=== PATIENT | female | born 1950 | race Two or more races ===

== ENCOUNTER 2017-08-31 20:46 | Inpatient (IN) | payer MEDICARE, OTHER ==
[~2017-08-31] VITALS: Ht 147.3 cm; Wt 68.0 kg
--- NOTE | 2017-08-31 21:10 | NUR ---
[facility] FROM [facility] C/O SEVER GENRAL SHARP ABDOMINAL PAIN 12/13 AND INTERMITTENT FEVER SINCE WEDNESDAY. PT IS AAOX4. +N/V/D X2 DAYS. PT STATES PAIN/BURNING SENSATION DURING URINATION. PT STATES DIARRHEA X 2 DAYS GREEN IN COLOR. PT STATES SHE HAS HX OF C-DIFF. PT NOTED WITHDRAWING TO TOUCH DURING ABD ASSESSMENT. PT NOTED TO HAVE MILD ABD TENDERNESS. SURGICAL WOUND COVERED WITH SURGICAL ADHESIVE. PT NOTED TO BE IN MILD ACUTE DISTRESS. RESP EVEN AND UNLABORED. PT SAFETY AND COMFORT MEASURES IN PLACE. PT PLACED ON HAND BINDER STRIPPER AND POX. AWAITING MD FOR EVAL.
--- NOTE | 2017-08-31 21:11 | NUR ---
VSS. PT GIVEN WARM BLANKET. FAMILY MEMBER BEDSIDE WITH PT.
[2017-08-31] MEDS ORDERED: IV NS 0.9% 1,000 ML BAG IV ONE (21:30)
[2017-08-31] MEDS ORDERED: MORPHINE SULFATE INJ 2 MG/ML DISP.SYRIN IV ONE (21:30)
--- NOTE | 2017-08-31 21:35 | NUR ---
SOCIALLY RESPONSIBLE INVESTMENT ADVISER AT BEDSIDE TO COLLECT BLOOD
[2017-08-31] MEDS ORDERED: MORPHINE SULFATE INJ 4 MG/ML DISP.SYRIN ONE (21:40)
--- NOTE | 2017-08-31 21:40 | NUR ---
PT UNABLE TO GIVE STOOL SPECIMEN AT THIS TIME. WILL CONTINUE TO MONITOR PT.
--- NOTE | 2017-08-31 21:43 | NUR ---
EKG AT BEDSIDE
[2017-08-31 21:52] LABS: BASOPHILS # (AUTO) 0.6 /CMM (0.0-0.2); BASOPHILS % (AUTO) 4.4 % (0.0-2.0); EOSINOPHILS % (AUTO) 0.4 % (0.0-6.0); HEMATOCRIT 39 % (33-45); HEMOGLOBIN 13.4 g/dL (11.5-14.8); LYMPHOCYTES # (AUTO) 0.9 /CMM (0.8-4.8); MEAN CORPUSCULAR HGB CONC 35 g/dl (31.0-36.0); MEAN CORPUSCULAR VOLUME 87 fL (82-100); MONOCYTES # (AUTO) 0.5 /CMM (0.1-1.30); MONOCYTES % (AUTO) 4.3 % (2.0-12.0); NEUTROPHILS # (AUTO) 10.5 /CMM (1.8-8.9); NEUTROPHILS % (AUTO) 83.9 % (43.0-81.0); PLATELET COUNT (AUTO) 403 /CMM (150-450); RDW COEFFICIENT OF VARIATION 14.5 (11.5-15.0); RED BLOOD CELL COUNT(AUTO) 4.46 MIL/uL (4.0-5.2); WHITE BLOOD COUNT (AUTO) 12.6 K/uL (4.3-11.0)
--- NOTE | 2017-08-31 22:03 | NUR ---
PT UNABLE TO GIVE STOOL SAMPLE AT THIS TIME
--- NOTE | 2017-08-31 22:10 | NUR ---
FACILITY OPERATIONS MANAGER BEDSIDE
[2017-08-31 22:12] LABS: APPEARANCE,URINE SL CLOUDY (CLEAR); BILIRUBIN,URINE NEGATIVE (NEGATIVE); BLOOD, URINE 3+ Ery/uL (NEGATIVE); COLOR,URINE YELLOW (YELLOW); KETONES,URINE 1+ (NEGATIVE); LEUKOCYTE ESTERASE ,URINE NEGATIVE (NEGATIVE); NITRITE, URINE NEGATIVE (NEGATIVE); PH,URINE 8.5 (5.0-8.0); PROTEIN,URINE 2+ mg/dl (NEGATIVE); UGLUCOSE NEGATIVE (NEGATIVE)
[2017-08-31] MEDS ORDERED: ONDANSETRON HCL/PF 4 MG/2 ML VIAL ONE (22:14)
[2017-08-31 22:22] LABS: BACTERIA,URINE Moderate /HPF (None Seen); RBC,URINE 81-100 /HPF (0-2); SQUAMOUS EPITHELIAL CELL,UR Few /HPF (None Seen)
[2017-08-31 22:27] LABS: INR 0.99 (0.87-1.13)
[2017-08-31] MEDS ORDERED: HYDROMORPHONE INJ 0.5 MG/0.5 ML SYRINGE ONE (22:28)
[2017-08-31] MEDS ORDERED: HYDROMORPHONE 1 MG/1 ML DISP.SYRIN IV ONE (22:30)
[2017-08-31] MEDS ORDERED: ONDANSETRON HCL/PF 4 MG/2 ML VIAL IV ONE (22:30)
[2017-08-31 22:34] LABS: TROPONIN I < 0.017 ng/mL (0.00-0.056)
[2017-08-31 22:39] LABS: CALCIUM, SERUM 8.8 mg/dL (8.5-10.1); CARBON DIOXIDE 22 mmol/L (21-32); CHLORIDE 99 mmol/L (98-107); CREATININE 0.9 mg/dL (0.6-1.3); GLUCOSE 139 mg/dL (74-106); POTASSIUM 3.6 mmol/L (3.5-5.1); SODIUM SERUM 133 mmol/L (136-145); UREA NITROGEN, BLOOD 8 mg/dL (7-18)
[2017-08-31 22:43] LABS: ALANINE AMINOTRANSFERASE 74 U/L (12-78); ALKALINE PHOSPHATASE 113 U/L (46-116); ASPARTATE AMINOTRANSFERASE 49 U/L (15-37); BILIRUBIN,DIRECT 0.4 mg/dL (0.0-0.2); BILIRUBIN,TOTAL 1.1 mg/dL (0.2-1.0); LIPASE 45 U/L (73-393); TOTAL PROTEIN, SERUM 7.6 g/dL (6.4-8.2)
[2017-08-31] MEDS ORDERED: IV NS 0.9% 500 ML IV ONE (22:50)
[2017-08-31 22:51] LABS: BAND % (MANUAL) 2 % (0.0-5.0); LYMPHOCYTES % (MANUAL) 5 % (16-48); NEUTROPHILS % (MANUAL) 90 (42-76)
[2017-08-31] MEDS ORDERED: IOHEXOL-300 100 ML VIAL IV ONE (22:51)
[2017-08-31] MEDS ORDERED: CT SWABBABLE VALVE TRANS SET 1 EA INFUS.SET MC ONE (22:51)
[2017-08-31 22:52] LABS: MONOCYTES % (MANUAL) 3 % (0-11.0)
[2017-09-01] VITALS (85 sets, daily range): BP systolic 69–196; BP diastolic 14–108
[2017-09-01] MEDS ORDERED: IV NS 0.9% 1,000 ML BAG IV ONE (00:30)
[2017-09-01] MEDS ORDERED: PIPERACILLIN /TAZOBACTAM 3.375 G in IV D5W 50 ML IV ONE (00:30)
--- NOTE | 2017-09-01 01:16 | NUR ---
DR REYES IS SPEAKING TO THE ON-CALL SURGEON.
--- NOTE | 2017-09-01 01:30 | NUR ---
PHLEBOTOMY BEDSIDE FOR BLOOD DRAW
--- NOTE | 2017-09-01 01:37 | NUR ---
PAGED DORIS WEBSTER FOR PANEL CALL.
--- NOTE | 2017-09-01 01:41 | NUR ---
PT IS ASSIGNED TO ICU RM#: [id number]
[2017-09-01] MEDS ORDERED: LOSA1TAB36 PO (02:08)
[2017-09-01] MEDS ORDERED: MAGNESIUM HYDROXIDE 30 ML UDC PO PRN (03:00)
[2017-09-01] MEDS ORDERED: ACETAMINOPHEN 325 MG TABLET PO PRN (03:00)
[2017-09-01] MEDS ORDERED: Z GUARD REMEDY 2 OZ OINT TP PRN (03:00)
[2017-09-01] MEDS ORDERED: HYDROCODONE/APAP 5/325MG 1 EACH TABLET PO PRN (03:00)
[2017-09-01] MEDS ORDERED: MAG HYDROX/AL HYDROX/SIMETH 30 ML UDC PO PRN (03:00)
[2017-09-01] MEDS ORDERED: ZOLPIDEM TARTRATE 5 MG TABLET PO PRN (03:00)
[2017-09-01] MEDS ORDERED: ONDANSETRON HCL/PF 4 MG/2 ML VIAL IVP PRN (03:00)
--- NOTE | 2017-09-01 03:20 | NUR ---
PT TRANSPORTED TO THE OR. REPORT GIVEN TO OR TEAM FOR ESTIVEN.
--- NOTE | 2017-09-01 03:26 | NUR ---
REPORT GIVEN TO HEAVY EQUIPMENT OPERATORGAUTAM WOOD FOR ESTIVEN.
[2017-09-01] MEDS ORDERED: VASOPRESSIN INJ 20 UNIT/ML VIAL ONE (03:56)
[2017-09-01] MEDS ORDERED: ROCURONIUM BROMIDE 50 MG/5 ML ONE (04:18)
[2017-09-01] MEDS ORDERED: METRONIDAZOLE 500MG/ NS 100ML 100 ML IV ONE (04:30)
[2017-09-01] MEDS ORDERED: ALBUTEROL FS 2.5 MG/3 ML VIAL.NEB ONE (04:51)
[2017-09-01] MEDS ORDERED: ALBUTEROL 17GM INHALER ONE (04:52)
--- NOTE | 2017-09-01 07:45 | NUR ---
RT PATIENT REC'D TRANSFER FROM SURGERY, ORALLY INTUBATED WITH A 7.0 ETT MARKED AT 22CM AT THE LIP. B/S DIMINISHED OVER LEFT LUNG. STAT CHEST X RAY CALLED. ANESTHESIOLOGIST AT BEDSIDE WANTED TO PUSH THE TUBE IN DEEPER. I RESPONDED BY SAYING LETS WAIT FOR THE CHEST XRAY FIRST. ANESTHESIOLOGIST WANTED TO PERFORM A VENTILATOR SIGH MANEUVER, WHICH I ALSO DISAGREED ON AND EXPLAINED IF THE TUBE WAS IN THE RIGHT STEM BRONCHUS WE COULD CAUSE A PNEUMOTHORAX. ANESTHESIOLOGIST DID NOT LIKE ME DISAGREEING WITH HIM. CHEST XRAY ARRIVED AND SHOWED THAT THE ETT NEEDED TO BE PULLED BACK 2CM. PER DR SALOMON ORDER ETT PULLED BACK AND SECURED AT 20CM AT THE LIP. PATIENT PLACED ON [facility] VENT WITH MD ORDERS: AC14, 500, +5, 80%. VENT ALARMS CHECKED + AUDIBLE. CUFF PRESSURE CHECKED VARNISH MELTER. PATIENT SUCTIONED WITH NO SECRETIONS. B/S DIM CLEAR BILAT. AMBU BAG AT HOB Addendum: 09/01/17 at 0916 by TRIXIE GARCIA RT Amended: Links added.
--- NOTE | 2017-09-01 07:45 | NUR ---
PATIENT TRANSFERRED TO FLOOR.
--- NOTE | 2017-09-01 08:00 | NUR ---
DR PATEL AT BEDSIDE. AWARE OF PATIENT TACHYCARDIA. NO NEW ORDERS
--- NOTE | 2017-09-01 08:00 | NUR ---
RECEIVED PATIENT FROM SURGICAL UNIT. S/P EXPLORATORY LAP/OPEN- SIGMOID COLECTOMY, END COLOSTOMY. MOBILIZATION DESCENDING COLON. DRESSINGS INTACT ON ABDOMEN NOTED WITH LEFT MID ABD COLOSTOMY IN PLACE AND 2 JESSICA DRAINS 1) LEFT ABDOMEN 2) MID ABDOMEN. MID ABDOMEN JESSICA DRAINED 50ML RED THIN FLUID. ETT 7.0/ 22 AT LIP NOTED. PATIENT SATURATIONS 88-90%; PENDING CHEST X FOR PLACEMENT. CHRIS CATH IN PLACE DRAINING TO GRAVITY. PER DR ANTON ORDER CBC, BMP, PER DR PTAEL ORDER CHEM 12. PER DR ANTON ORDER IF PATIENT URINE OUTPUT DECREASES TO UNDER 30ML/HOUR GIVE 500 NS BOLUS. PATIENT WITH SCDS. L AND R AC SITES CLEAN DRY AND INTACT. CHEST X TAKEN SHOWS ETT IN RIGHT MAINSTEM BRONCHUS. PER DR PATEL PULL BACK 2 CM. AT THIS TIME ETT 7.0/20. PATIENT SATURATING WELL 98%. PATIENT SEDATED STILL AT THIS TIME. PER DR RANDHAWA CHECK PATIENT BLOOD SUGAR; 188. BED BATH COMPLETED. TOLERATING VENT WELL. SAFETY PRECAUTIONS IN PLACE. HOB ELEVATED. MD ORDERS CARRIED OUT. WILL MONITOR
[2017-09-01] MEDS: PANTOPRAZOLE 40 MG VIAL IV SCH (08:18)
--- NOTE | 2017-09-01 08:20 | NUR ---
NOTIFIED DR PATEL OF PATIENT HTN. PER MD GIVE NITROPASTE 2INCHES Q12H
[2017-09-01] MEDS: PROPOFOL 100 ML IV PRN ×4 (08:21→23:58)
[2017-09-01] MEDS: IV NS 0.9% 1,000 ML IV PRN ×2 (08:21→17:55)
[2017-09-01 08:32] LABS: CALCIUM, SERUM 7.5 mg/dL (8.5-10.1); POTASSIUM 4.3 mmol/L (3.5-5.1)
--- NOTE | 2017-09-01 08:58 | NUR ---
DR GOMEZ AT BEDSIDE. UPDATED ON PATIENT CONDITION. SURGICAL INTERVENTION. VENT SETTINGS AT THIS TIME AC 14, TV 500, PEEP 5, FI02 80%. DR GOMEZ AWARE ETT WAS PULLED OUT 2CM BY RT. NO NEW ORDERS AT THIS TIME
[2017-09-01 08:59] LABS: ALBUMIN 1.9 g/dL (3.4-5.0); BILIRUBIN,DIRECT 0.7 mg/dL (0.0-0.2); BILIRUBIN,TOTAL 1.7 mg/dL (0.2-1.0); TOTAL PROTEIN, SERUM 5.9 g/dL (6.4-8.2)
[2017-09-01 09:10] LABS: THYROID STIMULATING HORMONE 1.183 uIU/mL (0.358-3.74)
[2017-09-01 09:18] LABS: BASOPHILS # (AUTO) 0.1 /CMM (0.0-0.2); BASOPHILS % (AUTO) 0.5 % (0.0-2.0); EOSINOPHILS % (AUTO) 0.2 % (0.0-6.0); HEMATOCRIT 43 % (33-45); HEMOGLOBIN 14.3 g/dL (11.5-14.8); LYMPHOCYTES # (AUTO) 2.1 /CMM (0.8-4.8); LYMPHOCYTES % (AUTO) 18.2 % (20.0-44.0); MEAN CORPUSCULAR HGB CONC 33 g/dl (31.0-36.0); MEAN CORPUSCULAR VOLUME 87 fL (82-100); MONOCYTES % (AUTO) 8.7 % (2.0-12.0); NEUTROPHILS # (AUTO) 8.6 /CMM (1.8-8.9); NEUTROPHILS % (AUTO) 72.4 % (43.0-81.0); PLATELET COUNT (AUTO) 447 /CMM (150-450); RDW COEFFICIENT OF VARIATION 14.7 (11.5-15.0); RED BLOOD CELL COUNT(AUTO) 4.97 MIL/uL (4.0-5.2); WHITE BLOOD COUNT (AUTO) 11.8 K/uL (4.3-11.0)
[2017-09-01] MEDS: NITROGLYCERIN 30 GM TUBE TOP SCH ×2 (09:28→20:01)
[2017-09-01] MEDS ORDERED: DEXTROSE 50%-WATER 50 ML DISP.SYRIN IV PRN (09:30)
[2017-09-01] MEDS ORDERED: INSULIN REGULAR, HUMAN 100 UNIT/ML 3 ML VIAL SQ PRN (09:30)
--- NOTE | 2017-09-01 09:30 | NUR ---
DR KRUEGER TAKING OVER PATIENT CARE. UPDATED ON PATIENT CONDITION, VS, PRESENTATION, AND ORDERS OF NOW. Addendum: 09/01/17 at 1119 by ELMO PARKER RN AT BEDSIDE. AWARE OF TACHYCARDIA, BLOOD PRESSURE, DIMINISHED URINE OUTPUT S/P 3L BOLUS IN SURGERY AND PATIENT TONGUE APPEARS TO BE SWOLLEN/LARGE.
--- NOTE | 2017-09-01 09:33 | NUR ---
PER DR KRUEGER DISCONTINUE FLAGYL. ONLY ZOSYN TO BE GIVEN
[2017-09-01] MEDS: LABETALOL HCL IV 100MG VIAL IV SCH ×2 (09:54→17:04)
[2017-09-01] MEDS ORDERED: ZOFRAN 4mg/2ML IV PRN (10:00)
[2017-09-01] MEDS ORDERED: SENOKOT 8.6 MG TABLET PO PRN (10:00)
[2017-09-01] MEDS ORDERED: TYLENOL 650 MG TABLET PO PRN (10:00)
--- NOTE | 2017-09-01 11:00 | NUR ---
NITRO PASTE REMOVED PATIENT BLOOD PRESSURE IS DECREASING. WILL MONITOR
[2017-09-01 11:05] LABS: ABG BASE EXCESS -11.3 mmol/L; ABG OXYGEN SATURATION 97.9 % (92.0-98.5); ABG PCO2 24.9 mmHg (35.0-45.0); ABG PH 7.326 (7.350-7.450); ABG PO2 125.4 mmHg (75.0-100.0); AaDO2 418.9 mmHg; COHb 0.2 % (0.5-1.5); MetHb 0.7 % (0.0-1.5); PEEP,BG 5 cm H2O; SITE, ABG Right Radial; VT, ABG 500 mL
--- NOTE | 2017-09-01 11:06 | NUR ---
PATIENT FEELS COLD, CLAMMY AND DIAPHORETIC. CORE TEMP APPLIED 100.3. URINE OUTPUT DECREASING. WILL MONITOR.
--- NOTE | 2017-09-01 11:17 | NUR ---
NOTIFIED DR GOMEZ OF PATIENT ABG RESULTS. NO CHANGE PER MD
--- NOTE | 2017-09-01 11:29 | NUR ---
PATIENT URINE OUTPUT DECREASED. ONLY 10ML IN HOUR AND 30 MINUTES. PER MD ANTON GIVING 500ML BOLUS.
[2017-09-01] MEDS: BLOOD SUGAR DIAGNOSTIC 1 EACH STRIP IN SCH ×3 (11:30→23:19)
[2017-09-01] MEDS ORDERED: IV NS 0.9% 500 ML IV ONE (11:30)
--- NOTE | 2017-09-01 11:30 | NUR ---
BLOOD PRESSURE DROPPING. CONTINUING WITH NS BOLUS. HOB LOWERED, [place] LEGS ELEVATED.
[2017-09-01] MEDS ORDERED: ZOSYN IVPB 3.375 G in IV D5W 50ml IV SCH (12:00)
[2017-09-01] MEDS ORDERED: METRONIDAZOLE 500MG/ NS 100ML 500 MG in PREMIX 1 EA IV SCH (12:00)
--- NOTE | 2017-09-01 12:29 | NUR ---
MESSAGE TO DR KRUEGER TO NOTIFY OF PATIENT BLOOD PRESSURE. PER MD GIVE 1 LNS BOLUS AND REPORT RESULTS.
--- NOTE | 2017-09-01 12:52 | NUR ---
NOTIFIED DR KRUEGER BLOOD PRESSURE CONTINUING TO DROP. PER MD CHAVEZ LEVOPHED. AWARE PATIENT HR 90'S-LOW 100'S. SPOKE WITH NURSING JASON MADDOX PICC LINE Addendum: 09/01/17 at 1322 by ELMO PARKER RN DR SCHNEIDER PATIENT URINE OUTPUT SIGNIFICANTLY DECREASED
[2017-09-01] MEDS ORDERED: IV NS 0.9% 1,000 ML IV ONE (13:00)
[2017-09-01] MEDS ORDERED: IV NS 0.9% 1,000 ML IV PRN (13:00)
[2017-09-01] MEDS: PIPERACILLIN /TAZOBACTAM 3.375 G in IV D5W 50 ML IV SCH ×3 (13:00→23:13)
[2017-09-01] MEDS: NOREPINEPHRINE 8 MG in IV D5W 500 ML IV PRN ×2 (13:10→22:46)
--- NOTE | 2017-09-01 13:10 | NUR ---
LEVOPHED STARTED WILL TITRATE PER PROTOCOL
--- NOTE | 2017-09-01 14:44 | NUR ---
MESSAGE TO DR ANTON TO CONFIRM IF WE CAN GIVE MEDICATIONS THROUGH NG TUBE. IF NOT WILL CALL DR KRUEGER FOR SUPPOSITORY TYLENOL FOR PATIENT TEMP Addendum: 09/01/17 at 1450 by ELMO PARKER RN COOLING MEASURES INITIATED. ICE PACK APPLIED. ROOM COOLED. BLANKET REMOVED.
[2017-09-01] MEDS: ACETAMINOPHEN 650 MG/SUPP.RECT RC PRN (15:59)
--- NOTE | 2017-09-01 16:03 | NUR ---
PER DR EVANS MARTINEZ. TYLENOL 650 MG SUPPOSITORY GIVEN FOR PATIENT TEMP. PER GIVE 650MG RC Q6H PRN
--- NOTE | 2017-09-01 16:20 | NUR ---
patient skin still cool. no longer diaphoretic.
--- NOTE | 2017-09-01 19:13 | NUR ---
PT RECEIVED ORALLY INTUBATED ON VENT WITH NOTED SETTINGS AC 14,500,PEEP 5, 60%. 7.0 ETT SECURED AT 20CM AT THE LIP. PT TOLERATING VENT SETTINGS. SUCTIONED SMALL AMT OF THICK WHITE SECRETIONS. VENT ALARMS SET AND AUDIBLE. VENT PLUGGED INTO RED OUTLET. CUFF PRESSURE CHECKED TOW PICKER. NO RESPIRATORY DISTRESS NOTED AT THIS TIME , WILL CONTINUE TO MONITOR.
--- NOTE | 2017-09-01 20:46 | NUR ---
received pt from day shift, s/p exploratory laparotomy and peritonitis, sedated on Diprivan at 45mcg, SR, receiving levo at 12mcg, intubated, on the vent, lungs congested, no edema, NG clamped, f/c OK output, midabdominal surgical incision, dressing intact, no bleeding, R and L JESSICA intact, L colostomy intact, v/s stable, no pain, pt turned and repositioned, restraints on, family at the bedside.
[2017-09-01] MEDS: HYDROMORPHONE INJ 0.5 MG/0.5 ML SYRINGE IV PRN (23:50)
[2017-09-02] VITALS (98 sets, daily range): BP systolic 61–152; BP diastolic 43–97
--- NOTE | 2017-09-02 | NUR ---
pt is resting in the bed, sedated on Diprivan at 45mcg, receiving levo at s12mcg, v/s stable, no pain, pt turned and repositioned q2hrs.
[2017-09-02] MEDS: LABETALOL HCL IV 100MG VIAL IV SCH (01:30)
--- NOTE | 2017-09-02 01:33 | NUR ---
Labetalol and Nitro not given, pt is on Levophed, normal HR.
[2017-09-02] MEDS: HYDROMORPHONE INJ 0.5 MG/0.5 ML SYRINGE IV PRN ×4 (02:14→20:50)
[2017-09-02] MEDS: IV NS 0.9% 1,000 ML IV PRN ×3 (02:53→20:55)
[2017-09-02] MEDS: PROPOFOL 100 ML IV PRN ×4 (03:36→20:16)
--- NOTE | 2017-09-02 04:20 | NUR ---
pt is resting in the bed, sedated on Diprivan at 45mcg, receiving levo at 12mcg, v/s stable, no pain, pt cleaned, changed and repositioned q2hrs.
[2017-09-02 04:56] LABS: EOSINOPHILS % (AUTO) 0.1 % (0.0-6.0); HEMATOCRIT 33 % (33-45); HEMOGLOBIN 11.1 g/dL (11.5-14.8); LYMPHOCYTES # (AUTO) 0.9 /CMM (0.8-4.8); LYMPHOCYTES % (AUTO) 6.2 % (20.0-44.0); MEAN CORPUSCULAR HGB CONC 34 g/dl (31.0-36.0); MEAN CORPUSCULAR VOLUME 89 fL (82-100); MONOCYTES # (AUTO) 0.8 /CMM (0.1-1.30); MONOCYTES % (AUTO) 5.7 % (2.0-12.0); NEUTROPHILS # (AUTO) 12.5 /CMM (1.8-8.9); PLATELET COUNT (AUTO) 351 /CMM (150-450); RDW COEFFICIENT OF VARIATION 15.3 (11.5-15.0); RED BLOOD CELL COUNT(AUTO) 3.74 MIL/uL (4.0-5.2); WHITE BLOOD COUNT (AUTO) 14.2 K/uL (4.3-11.0)
[2017-09-02] MEDS: PIPERACILLIN /TAZOBACTAM 3.375 G in IV D5W 50 ML IV SCH ×4 (05:03→23:29)
[2017-09-02 05:34] LABS: BILIRUBIN,TOTAL 1.6 mg/dL (0.2-1.0); CALCIUM, SERUM 7.5 mg/dL (8.5-10.1); CREATININE 1.1 mg/dL (0.6-1.3); PHOSPHORUS 3.2 mg/dL (2.5-4.9); POTASSIUM 3.9 mmol/L (3.5-5.1); TOTAL PROTEIN, SERUM 4.8 g/dL (6.4-8.2)
[2017-09-02 05:42] LABS: ALBUMIN 1.3 g/dL (3.4-5.0)
[2017-09-02 05:44] LABS: THYROID STIMULATING HORMONE 0.884 uIU/mL (0.358-3.74)
[2017-09-02] MEDS: BLOOD SUGAR DIAGNOSTIC 1 EACH STRIP IN SCH ×4 (05:45→23:29)
[2017-09-02] MEDS: NITROGLYCERIN 30 GM TUBE TOP SCH (08:12)
[2017-09-02] MEDS: PANTOPRAZOLE 40 MG VIAL IV SCH (08:12)
[2017-09-02] MEDS: ENOXAPARIN SODIUM 40 MG/0.4 ML DISP.SYRIN SQ SCH (08:13)
[2017-09-02] MEDS: NOREPINEPHRINE 8 MG in IV D5W 500 ML IV PRN (08:48)
--- NOTE | 2017-09-02 10:21 | NUR ---
MAINTENANCE SERVICE TECHNICIAN NOTE 0720: Received patient sedated. With ETT to vent, tolerated settings well. NGT intact, clamped. With abdomen SP ex lap, dressing intact. 2JP drained, right JESSICA noted with serous drainage and mid abdomen noted with serosanguineous drainage. LLQ colostomy, noted with serosanguineous drainage. Right knee dressing intact, CDI. Dyer cath intact, noted with clear, yellow urine drained to BSD. PROGRAM MANAGEMENT ANALYST restraints on for safety. Levo @ 13mcg, will titrate as ordered. SR 90's on the monitor. 0910: Patient is awake, rendered reality orientation. Given Dilaudid as ordered for abdominal pain. RT at bedside, changed to SIMV mode. Will continue to monitor. 1000: Daughter at bedside, discussed re: the POC. Answered all questions an concerns. Pain med given as ordered. SIMV tolerated well. Awaiting for ABG.
[2017-09-02 10:43] LABS: ABG BASE EXCESS -7.4 mmol/L; ABG OXYGEN SATURATION 95.1 % (92.0-98.5); ABG PH 7.325 (7.350-7.450); AaDO2 93.8 mmHg; COHb 0.2 % (0.5-1.5); MetHb 0.6 % (0.0-1.5); O2Hb 94.3 % (94.0-97.0); SITE, ABG Left Radial
--- NOTE | 2017-09-02 11:28 | NUR ---
RT NOTE PT PLACED ON AC MODE DUE TO RN REQUEST FOR SEDATION. NO DISTRESS NOTED AT MOMENT. WILL CONTINUE TO MONITOR. Addendum: 09/02/17 at 1131 by PATRICIA JAY RT Amended: Links added.
--- NOTE | 2017-09-02 12:30 | NUR ---
OCCUPATIONAL HEALTH COORDINATOR NOTE Dr. Taylor in the unit,a rebolledo for the AGB result, with order to place back patient on AC mode and sedate, patient noted with agitation. Family at bedside, aware for the POC.
--- NOTE | 2017-09-02 15:58 | NUR ---
DISTRIBUTION SALES REPRESENTATIVE NOTE 1300: S/E by Dr. Taylor and with order to hold transfer out of ICU for now due to need of frequent suctioning. 1530: With recommendation to increase GT feeding to 60mL/hr, will monitor. No residuals noted at this time.
--- NOTE | 2017-09-02 19:29 | NUR ---
PT RECEIVED ORALLY INTUBATED ON VENT WITH NOTED SETTINGS AC 14,500,PEEP 5, 40%. 7.0 ETT SECURED AT 20CM AT THE LIP. PT TOLERATING VENT SETTINGS. SUCTIONED MODERATE AMT OF THICK YELLOW /ESPINOSA SECRETIONS. VENT ALARMS SET AND AUDIBLE. VENT PLUGGED INTO RED OUTLET. CUFF PRESSURE CHECKED CHIEF MEDICAL DIRECTOR. NO RESPIRATORY DISTRESS NOTED AT THIS TIME , WILL CONTINUE TO MONITOR.
--- NOTE | 2017-09-02 20:44 | NUR ---
received pt from day shift, sedated on Diprivan at 45mcg, SR, receiving levo at 4mcg, on the vent, lungs congested, no edema, NG clamped, f/c OK output, R and L JPs intact draining, L colostomy intact, restraints on, v/s stable, no pain, pt turned and repositioned.
[2017-09-03] VITALS (82 sets, daily range): BP systolic 84–149; BP diastolic 39–94
--- NOTE | 2017-09-03 | NUR ---
pt is resting in the bed, v/s stable, no pain, pt turned and repositioned q2hrs.
[2017-09-03] MEDS: PROPOFOL 100 ML IV PRN ×2 (00:51→04:41)
--- NOTE | 2017-09-03 04:25 | NUR ---
pt is resting in the bed, no acute distress overnight, SR, sedated on Diprivan at 45mcg, receiving levo at 5mcg, v/s stable, no pain, pt cleaned, changed and repositioned q2hrs.
[2017-09-03] MEDS: HYDROMORPHONE INJ 0.5 MG/0.5 ML SYRINGE IV PRN ×6 (04:39→22:53)
[2017-09-03] MEDS: IV NS 0.9% 1,000 ML IV PRN ×2 (04:40→14:16)
[2017-09-03] MEDS: NOREPINEPHRINE 8 MG in IV D5W 500 ML IV PRN (04:40)
[2017-09-03 04:46] LABS: BASOPHILS # (AUTO) 0.1 /CMM (0.0-0.2); BASOPHILS % (AUTO) 0.3 % (0.0-2.0); EOSINOPHILS % (AUTO) 1.4 % (0.0-6.0); HEMATOCRIT 28 % (33-45); HEMOGLOBIN 9.3 g/dL (11.5-14.8); LYMPHOCYTES # (AUTO) 0.8 /CMM (0.8-4.8); LYMPHOCYTES % (AUTO) 4.8 % (20.0-44.0); MEAN CORPUSCULAR HGB CONC 34 g/dl (31.0-36.0); MEAN CORPUSCULAR VOLUME 88 fL (82-100); MONOCYTES % (AUTO) 5.8 % (2.0-12.0); NEUTROPHILS # (AUTO) 15.3 /CMM (1.8-8.9); NEUTROPHILS % (AUTO) 87.7 % (43.0-81.0); PLATELET COUNT (AUTO) 305 /CMM (150-450); RDW COEFFICIENT OF VARIATION 15.7 (11.5-15.0); RED BLOOD CELL COUNT(AUTO) 3.16 MIL/uL (4.0-5.2); WHITE BLOOD COUNT (AUTO) 17.5 K/uL (4.3-11.0)
[2017-09-03 04:50] LABS: BILIRUBIN,TOTAL 1.6 mg/dL (0.2-1.0); CALCIUM, SERUM 7.7 mg/dL (8.5-10.1); CREATININE 0.8 mg/dL (0.6-1.3); MAGNESIUM 2.2 mg/dL (1.8-2.4); PHOSPHORUS 2.3 mg/dL (2.5-4.9); POTASSIUM 3.8 mmol/L (3.5-5.1); TOTAL PROTEIN, SERUM 5.1 g/dL (6.4-8.2)
[2017-09-03] MEDS: PIPERACILLIN /TAZOBACTAM 3.375 G in IV D5W 50 ML IV SCH ×4 (05:23→23:57)
[2017-09-03 05:27] LABS: ALBUMIN 1.3 g/dL (3.4-5.0)
[2017-09-03] MEDS: BLOOD SUGAR DIAGNOSTIC 1 EACH STRIP IN SCH ×4 (05:31→23:57)
[2017-09-03] MEDS: PANTOPRAZOLE 40 MG VIAL IV SCH (08:11)
[2017-09-03] MEDS: ENOXAPARIN SODIUM 40 MG/0.4 ML DISP.SYRIN SQ SCH (08:12)
[2017-09-03] MEDS ORDERED: ALBUMIN 25% 12.5 GM/50 ML BOTTLE IV ONE (09:00)
[2017-09-03] MEDS ORDERED: DC PROPOFOL WHEN EXTUBATED XX PRN ×2 (09:00→12:07)
[2017-09-03] MEDS: METOCLOPRAMIDE HCL 10 MG/2 ML VIAL IV SCH ×3 (09:58→21:15)
[2017-09-03] MEDS ORDERED: ALBUMIN 25% 12.5 GM in PREMIX 1 EA IV ONE (10:00)
[2017-09-03 10:46] LABS: ABG BASE EXCESS -4.9 mmol/L; ABG OXYGEN SATURATION 95.4 % (92.0-98.5); ABG PH 7.346 (7.350-7.450); ABG PO2 84.4 mmHg (75.0-100.0); AaDO2 157.1 mmHg; COHb 0.3 % (0.5-1.5); MetHb 0.7 % (0.0-1.5); O2Hb 94.4 % (94.0-97.0); SITE, ABG Left Radial; VENT MODE, BG SIMV 4 500 PSV12 40% +5
--- NOTE | 2017-09-03 12:24 | NUR ---
Pt extubated per MD order. Pt on O2 via nasal cannula showing no signs of respiratory distress at this time. Addendum: 09/03/17 at 1227 by CATHLEEN STEVENS RT Amended: Links added.
--- NOTE | 2017-09-03 13:17 | NUR ---
IMMIGRATION ATTORNEY NOTE 0720: Received patient sedated, with ETT to vent, tolerated settings well. With right NGT intact, clamped. SR 90's on the monitor. With abdominal SP Sx site, with medial JESSICA drain, draining serosanguineous and right side of abdomen JESSICA drain, draining serous. With Dyer cath intact, noted with clear jovanna colored urine drained to BSD. INDUSTRIAL ORGANIZATIONAL PSYCHOLOGIST restraints on for safety. LLQ colostomy intact, noted with serosanguineous drainage. Right knee SP Sx, dressing intact. Will turn and reposition q2. Remained NPO for now. IVF infusing as ordered. On Levophed @ 5mcg, will titrate accordingly. 0900: Patient is awake, off sedation, placed on SIMV trial by RT, patient aware for the POC. Sister at bedside. Kept patient calm. JENNYFER PICC intact, on Levo @ 5mcg, will titrate as ordered. 0930: S/E by Dr. Taylor, tolerated SIMV mode at this time. Will continue to monitor. 1000: S/E by Dr. Solares, with order of Albumin and Reglan. Reported to re: CVP reading 13-15, on NS @ 125, with order to decrease IVF to 100mL/hr. 1215: Extubated by RT as ordered by Dr. Taylor, patient tolerated procedure. No stridor noted, placed on 5LPM of O2 via NC, Sat 95%. Will monitor. 1220: S/E by Dr. Fisher, no new order at this time. 1310: No any significant changes noted at this time. Kept clean, warm and dry. Needs attended. Kept call light at reach.
[2017-09-03] MEDS ORDERED: Sodium Phosphate 15 MMOL in IV D5W 250 ML IV ONE (14:00)
--- NOTE | 2017-09-03 20:33 | NUR ---
FISHER SPEAR. INITIAL ASSESSMENT. RECEIVED RTHE PT REST ON THE BED. AWAKE, ALERT, FOLLOW COMMANDS. LOGISTICS PLANNING MANAGER SHOWING S TACH, RATE IS 103. LT NARE NGT INTACT. CLAMPED. RT KNEE SURGICAL DRESSING AND OSVALDO INTACT. ABDOMENAL DRESSING INTACT. RT AND LT SIDE JESSICA DRAIN INTACT, LT SIDE COLOSTOMY BAG INTACT. CVP LINE LEVEL ZERO CALBRATED.CVP READING RECEIVED WITH 15, FC PATENT. URINE DRAINING, NPO. HOB ELEVATED. IV LT UPPER ARM PICC LINE IVF NS 100ML/H. WILL CONTINUE TO MONITOR VITALS. TEMP 98.7,
[2017-09-04] VITALS (22 sets, daily range): BP systolic 115–169; BP diastolic 62–98
[2017-09-04] MEDS: IV NS 0.9% 1,000 ML IV PRN ×3 (00:02→23:19)
--- NOTE | 2017-09-04 03:08 | NUR ---
COMMUNITY ENGAGEMENT REPRESENTATIVE. AM CARE, ORAL CARE, BED BATH GIVEN. LINEN CHANGED REMAINING SAME OXYGEN TOLERATED WELL. SAT 98%.NO ACUTE DISTRESS NOTED. GLASS PULVERIZER EQUIPMENT OPERATOR SHOWING S TACH. IV RT UPPER ARM PICC LINE IVF NS 100ML/H, LT NARE NGT CLAMPED RT AND LT SIDE JESSICA TUBE INTACT, COLOSTOMY BAG INTACT. FC PATENT. URINE DRAINING. HOB ELEVATED, AFEBRILE. HOB ELEVATED. TURN AND REPOSITION Q2H. WILL CONTINUE TO MONITOR VITALS.
[2017-09-04] MEDS: METOCLOPRAMIDE HCL 10 MG/2 ML VIAL IV SCH ×4 (03:24→20:15)
[2017-09-04 04:46] LABS: BASOPHILS % (AUTO) 0.1 % (0.0-2.0); EOSINOPHILS % (AUTO) 1.4 % (0.0-6.0); HEMATOCRIT 27 % (33-45); HEMOGLOBIN 9.1 g/dL (11.5-14.8); LYMPHOCYTES # (AUTO) 0.9 /CMM (0.8-4.8); LYMPHOCYTES % (AUTO) 6.7 % (20.0-44.0); MEAN CORPUSCULAR HGB CONC 34 g/dl (31.0-36.0); MEAN CORPUSCULAR VOLUME 88 fL (82-100); MONOCYTES # (AUTO) 0.7 /CMM (0.1-1.30); MONOCYTES % (AUTO) 5.1 % (2.0-12.0); NEUTROPHILS # (AUTO) 11.9 /CMM (1.8-8.9); NEUTROPHILS % (AUTO) 86.7 % (43.0-81.0); PLATELET COUNT (AUTO) 268 /CMM (150-450); RDW COEFFICIENT OF VARIATION 15.4 (11.5-15.0); RED BLOOD CELL COUNT(AUTO) 3.08 MIL/uL (4.0-5.2); WHITE BLOOD COUNT (AUTO) 13.7 K/uL (4.3-11.0)
[2017-09-04] MEDS: PIPERACILLIN /TAZOBACTAM 3.375 G in IV D5W 50 ML IV SCH ×4 (05:08→23:15)
[2017-09-04] MEDS: BLOOD SUGAR DIAGNOSTIC 1 EACH STRIP IN SCH ×4 (05:09→23:14)
[2017-09-04 05:26] LABS: ALBUMIN 1.6 g/dL (3.4-5.0); CALCIUM, SERUM 8.3 mg/dL (8.5-10.1); CREATININE 0.7 mg/dL (0.6-1.3); MAGNESIUM 2.2 mg/dL (1.8-2.4); PHOSPHORUS 2.4 mg/dL (2.5-4.9); POTASSIUM 3.6 mmol/L (3.5-5.1); TOTAL PROTEIN, SERUM 5.5 g/dL (6.4-8.2)
--- NOTE | 2017-09-04 06:20 | NUR ---
APPLIANCE MECHANIC. RT ABDOMEN JESSICA DRAIN 5 ML LT SIDE JESSICA 5 NL
--- NOTE | 2017-09-04 07:05 | NUR ---
RN NOTES RECEIVED PT ON BED, ALOx4, ON 5L O2 N/C , RESPIRATION EVEN AND UNLABORED, GREYSON SOB, ON TELE ST , HR IN 100'S, LT NARE NGT INTACT. CLAMPED. PT IS NPO, HOB ELEVATED, RT KNEE SURGICAL DRESSING AND OSVALDO INTACT. ABDOMINAL DRESSING CLEAN AND DRY AND INTACT. RIGHT AND LEFT JESSICA DRAIN AND LEFT SIDED COLOSTOMY BAG INTACT, CVP LINE LEVEL ZERO CALIBRATED.CVP READING AT 9 AT THIS TIME, NS AT 100CCC/HR RUNNING VIA L UPPER ARM PICC LINE SITE CDIARIES DRINING TO GRAVITY WITH YELLOW CLEAR URINE , SR UP x3, CALL LIGHT WITHIN EASY REACH, WILL CONTINUE TO MONITOR CLOSELY
[2017-09-04] MEDS: HYDROMORPHONE INJ 0.5 MG/0.5 ML SYRINGE IV PRN ×5 (07:43→23:15)
[2017-09-04] MEDS: PANTOPRAZOLE 40 MG VIAL IV SCH (08:02)
[2017-09-04] MEDS: ENOXAPARIN SODIUM 40 MG/0.4 ML DISP.SYRIN SQ SCH (08:03)
--- NOTE | 2017-09-04 12:00 | NUR ---
RN NOTES NGT D/JEANETTE PER DR ANTON ORDER . SPEECH CONSULT ORDERED .
[2017-09-04] MEDS: LABETALOL HCL IV 100MG VIAL IV PRN ×2 (12:16→14:17)
[2017-09-04] MEDS ORDERED: Sodium Phosphate 7.5 MMOL in IV D5W 100 ML IV ONE (13:00)
--- NOTE | 2017-09-04 14:00 | NUR ---
RN NOTES CVP LINE D/JEANETTE PER TRANSFERE ORDER.
--- NOTE | 2017-09-04 15:30 | NUR ---
RN NOTES REASSESSED PT'S PAIN, PT VERBALIZED A DECREASE OF PAIN SCALE OF 4/10. VS RECHECK BP ON 140S. WILL CONTINUE TO MONITOR
--- NOTE | 2017-09-04 15:45 | NUR ---
RN NOTES XY=[id number] DR KRUEGER NOTIFED , ORDER RECEIVED TO REPEAT LABETALOL 10MG IV x1
[2017-09-04] MEDS ORDERED: LABETALOL 20 MG/4 ML VIAL IV ONE (16:00)
--- NOTE | 2017-09-04 16:00 | NUR ---
RN NOTES REPORT GIVEN TO HAO FLOREZ.
--- NOTE | 2017-09-04 16:30 | NUR ---
RN NOTES PT TRANSFERRED TO ROOM 113-1, TELE BED , BP 149/80 AT THIS TIME ,
--- NOTE | 2017-09-04 16:30 | NUR ---
GARNETT ROOM WORKER ADMITTING NOTES RECEIVED REPORT FROM JOE ICU NURSE. PT WAS TRANSFERRED IN BED ACCOMPANIED BY 2 RN, A/O X4, ON 5LPM O2 VIA NC, PLACED ON TELE MONITOR SR, INITIAL ASSESSMENT DONE, FC INTACT AND DRAINING YELLOW URINE, WITH L AND R JESSICA DRAIN, INTACT AND DRAINING SEROSANGUINOUS, WITH INTACT COLOSTOMY WITH BAG, STAPLER IN MID ABDOMEN INTACT AND DRY, NO SIGNS OF INFECTION. RAC AND LAC SALINE LOCK INTACT AND PATENT, MINDY PICC LINE INTACT AND PATENT WITH ONGOING 1L X 75 ML/HR. ORIENTED PT TO NEW ROOM, DISCUSSED PLAN OF CARE. BED IN LOW AND LOCKED POSITION, WILL CONTINUE TO MONITOR
--- NOTE | 2017-09-04 16:30 | NUR ---
RN NOTES PT C/O PAIN ON SURGICAL SITE, WITH PAIN SCALE OF 9/10. VS TAKEN, BP ON 160'S, ADMINISTER DILAUDID PRN, WILL MONITOR FOR RESULT
--- NOTE | 2017-09-04 19:22 | NUR ---
RN CLOSING NOTES PT IN BED, NO ACUTE CHANGE OF CONDITION DURING SHIFT, PT'S BP 142/65, NO C/O PAIN, ENDORSE TO PM SHIFT FOR CONTINUITY OF CARE, ENDORSED TO FOLLOW ON CPM WITH PT
[2017-09-04] MEDS: ACETAMINOPHEN 650 MG/SUPP.RECT RC PRN (23:50)
[2017-09-05] VITALS: BP 117/87
[2017-09-05] MEDS: METOCLOPRAMIDE HCL 10 MG/2 ML VIAL IV SCH ×4 (03:13→20:26)
[2017-09-05 04:00] VITALS: BP 157/88
[2017-09-05] MEDS: BLOOD SUGAR DIAGNOSTIC 1 EACH STRIP IN SCH ×4 (06:20→23:00)
[2017-09-05] MEDS: PIPERACILLIN /TAZOBACTAM 3.375 G in IV D5W 50 ML IV SCH ×4 (06:21→23:01)
[2017-09-05 06:32] LABS: EOSINOPHILS % (AUTO) 3.3 % (0.0-6.0); HEMATOCRIT 26 % (33-45); LYMPHOCYTES # (AUTO) 1.2 /CMM (0.8-4.8); LYMPHOCYTES % (AUTO) 9.9 % (20.0-44.0); MEAN CORPUSCULAR HGB CONC 34 g/dl (31.0-36.0); MEAN CORPUSCULAR VOLUME 87 fL (82-100); MONOCYTES # (AUTO) 0.3 /CMM (0.1-1.30); MONOCYTES % (AUTO) 2.7 % (2.0-12.0); NEUTROPHILS # (AUTO) 9.9 /CMM (1.8-8.9); NEUTROPHILS % (AUTO) 84.1 % (43.0-81.0); PLATELET COUNT (AUTO) 294 /CMM (150-450); RDW COEFFICIENT OF VARIATION 15.4 (11.5-15.0); RED BLOOD CELL COUNT(AUTO) 3.05 MIL/uL (4.0-5.2); WHITE BLOOD COUNT (AUTO) 11.8 K/uL (4.3-11.0)
[2017-09-05 07:00] LABS: CALCIUM, SERUM 7.3 mg/dL (8.5-10.1); CREATININE 0.6 mg/dL (0.6-1.3); MAGNESIUM 1.9 mg/dL (1.8-2.4); POTASSIUM 2.9 mmol/L (3.5-5.1)
--- NOTE | 2017-09-05 07:35 | NUR ---
RN NOTE RECEIVED PATIENT AW2AKE IN BED WATCHING T.V. ALERT AND ORIENTED X4, SHE IS ABLE TO MAKE THINGS KNOWN AND VERBALIZED NEEDS. CURRENTLY ON O2 4L VIA NC AN SATURATING WELL. ON EXPLORATION MANAGER SINUS RHYTHM HR OF 94. F/C INTACT AND PATENT ADEQUATELY DRAINING WELL. LEFT AND RIGHT JESSICA DRAIN, INTACT AND DRAINING SEROSANGUINEOUS, WITH INTACT COLOSTOMY BAG, STAPLER IN MID ABDOMEN INTACT AND DRY, NO SIGNS OF INFECTION. RIGHT AC AND LEFT AC SALINE LOCK INTACT AND PATENT, LEFT UA PICC LINE INTACT AND PATENT WITH ONGOING IVF @75 ML/HR. ALL SAFETY MEASURES DONE. BED IN LOW AND LOCKED POSITION, PLACED CALL LIGHT WITHIN REACH. WILL CONTINUE TO MONITOR
[2017-09-05 08:00] VITALS: BP 161/80
[2017-09-05] MEDS: PANTOPRAZOLE 40 MG VIAL IV SCH (08:37)
[2017-09-05] MEDS: ENOXAPARIN SODIUM 40 MG/0.4 ML DISP.SYRIN SQ SCH (08:38)
[2017-09-05] MEDS ORDERED: K PHOS NEUTRAL 250 MG TABLET PO SCH (10:30)
[2017-09-05] MEDS: POTASSIUM CL. PREMIX PERIPHER. 50 ML IV SCH ×4 (10:30→13:55)
[2017-09-05] MEDS: AMLODIPINE BESYLATE 5 MG TABLET PO SCH (10:58)
[2017-09-05] MEDS ORDERED: POTASSIUM PHOSPHATE MM 15 MMOL in IV D5W 250 ML IV ONE (11:00)
[2017-09-05] MEDS: HYDROMORPHONE INJ 0.5 MG/0.5 ML SYRINGE IV PRN ×4 (11:32→22:43)
[2017-09-05 12:00] VITALS: BP 150/70
[2017-09-05] MEDS: LABETALOL HCL IV 100MG VIAL IV PRN (15:00)
[2017-09-05 16:00] VITALS: BP_SYST 150; BP_SYST 162; BP_DIAS 70; BP_DIAS 93
[2017-09-05] MEDS ORDERED: POTASSIUM CHLORIDE 20 MEQ TAB.PRT.SR PO ONE (17:00)
[2017-09-05] MEDS: IV NS 0.9% 1,000 ML IV PRN (18:57)
--- NOTE | 2017-09-05 19:35 | NUR ---
RN NOTE PATIENT REMAINED STABLE THROUGHOUT SHIFT. NO ACUTE CHANGES OR DISTRESS NOTED. CONSENT WAS SIGNED FOR HIDA SCAN PROCEDURE TOMORROW. CONTINUE NPO, PATIENT IS ABLE TO SWALLOW PILLS WITH A LITTLE BIT OF WATER PER DR KRUEGER. WILL ENDORSE TO NEXT SHIFT TO CONTINUE CONTINUITY OF CARE.
[2017-09-05 20:00] VITALS: BP 135/73
--- NOTE | 2017-09-06 01:45 | NUR ---
RN NOTE PATIENT LEFT FOR HIDA CT SCAN WITH ASSISSTANCE OF 2 RN'S, ALL SAFETY MEASURES TAKEN, PATIENT IS STABLE
--- NOTE | 2017-09-06 02:39 | NUR ---
NM:HIDA SCAN WAS COMPLETED. TECH:RB
--- NOTE | 2017-09-06 03:00 | NUR ---
RN NOTE PATIENT IS BACK FROM RADIOLOGY, ALL SAFETY MEASURES TAKEN, PATIENT IS STABLE, PER RADIOLOGIST UNABLE TO COMPLETE TEST. WILL RETAKE IT AT 5 PM
[2017-09-06] MEDS: METOCLOPRAMIDE HCL 10 MG/2 ML VIAL IV SCH ×4 (03:17→21:02)
[2017-09-06] MEDS: HYDROMORPHONE INJ 0.5 MG/0.5 ML SYRINGE IV PRN ×2 (03:18→11:03)
[2017-09-06 04:00] VITALS: BP 149/81
[2017-09-06] MEDS: BLOOD SUGAR DIAGNOSTIC 1 EACH STRIP IN SCH ×3 (05:32→17:04)
[2017-09-06] MEDS: PIPERACILLIN /TAZOBACTAM 3.375 G in IV D5W 50 ML IV SCH ×3 (05:32→17:04)
[2017-09-06 07:05] LABS: EOSINOPHILS % (AUTO) 2.5 % (0.0-6.0); HEMATOCRIT 32 % (33-45); HEMOGLOBIN 11.1 g/dL (11.5-14.8); LYMPHOCYTES # (AUTO) 1.3 /CMM (0.8-4.8); LYMPHOCYTES % (AUTO) 7.9 % (20.0-44.0); MEAN CORPUSCULAR HGB CONC 34 g/dl (31.0-36.0); MEAN CORPUSCULAR VOLUME 86 fL (82-100); MONOCYTES # (AUTO) 0.1 /CMM (0.1-1.30); MONOCYTES % (AUTO) 0.4 % (2.0-12.0); NEUTROPHILS # (AUTO) 14.3 /CMM (1.8-8.9); NEUTROPHILS % (AUTO) 89.2 % (43.0-81.0); PLATELET COUNT (AUTO) 379 /CMM (150-450); RDW COEFFICIENT OF VARIATION 15.3 (11.5-15.0); RED BLOOD CELL COUNT(AUTO) 3.77 MIL/uL (4.0-5.2)
[2017-09-06 07:34] LABS: ALBUMIN 1.9 g/dL (3.4-5.0); BILIRUBIN,TOTAL 1.8 mg/dL (0.2-1.0); CALCIUM, SERUM 8.5 mg/dL (8.5-10.1); CREATININE 0.6 mg/dL (0.6-1.3); MAGNESIUM 1.9 mg/dL (1.8-2.4); PHOSPHORUS 2.6 mg/dL (2.5-4.9); POTASSIUM 3.5 mmol/L (3.5-5.1); TOTAL PROTEIN, SERUM 6.2 g/dL (6.4-8.2)
--- NOTE | 2017-09-06 07:40 | NUR ---
RN NOTES RECEIVED PT IN STABLE CONDITION, A&0X3, STATELESS AND ANGUILLAN SPEAKING. ON 4L NC SATING WELL NO SOB OR DISTRESS NOTED CHRIS DRAINING TO GRAVITY YELLOW IN COLOR. JESSICA DRAINS INTACT WITH MINIMAL DRAINAGE. CURRENTLY NPO. MINDY PICC LINE INTACT WITH IVF AT 75ML/HR. BED LOCKED AND IN LOWEST POSITION, CALL LIGHT WITHIN REACH, SIDE RAILS UPX3, WILL CONT TO JAMEY.
[2017-09-06 08:00] VITALS: BP 161/87
[2017-09-06] MEDS: AMLODIPINE BESYLATE 5 MG TABLET PO SCH (08:22)
[2017-09-06] MEDS: PANTOPRAZOLE 40 MG VIAL IV SCH (08:22)
[2017-09-06] MEDS: ENOXAPARIN SODIUM 40 MG/0.4 ML DISP.SYRIN SQ SCH (08:27)
[2017-09-06 09:39] LABS: EOSINOPHILS % (MANUAL) 7 % (0-4); LYMPHOCYTES % (MANUAL) 5 % (16-48); MONOCYTES % (MANUAL) 4 % (0-11.0); NEUTROPHILS % (MANUAL) 84 (42-76)
[2017-09-06] MEDS ORDERED: PANTOPRAZOLE 40 MG TABLET.DR PO SCH (10:30)
[2017-09-06] MEDS: POTASSIUM CHLORIDE 20 MEQ TAB.PRT.SR PO SCH ×2 (10:48→12:04)
[2017-09-06] MEDS: HYDROMORPHONE INJ 2 MG/ML DISP.SYRIN IV PRN ×4 (12:28→20:05)
[2017-09-06 16:00] VITALS: BP 142/83
--- NOTE | 2017-09-06 18:43 | NUR ---
RN NOTES PT REMAINED IN STABLE CONDITION THROUGHOUT THE SHIFT ALL NEEDS MET. FAMILY AT BEDSIDE. NO SIGNIFICANT CHANGES NOTED. WILL ENDORSE TO ONCOMING SHIFT.
--- NOTE | 2017-09-06 19:30 | NUR ---
RN NOTES RECEIVED PT IN STABLE CONDITION, A&0X3, NORWEGIAN AND SWAZI SPEAKING. ON 4L NC SATING WELL NO SOB OR DISTRESS NOTED CHRIS DRAINING TO GRAVITY YELLOW IN COLOR. JESSICA DRAINS INTACT WITH MINIMAL DRAINAGE. MINDY PICC LINE, IV 18G RAC, 18G LAC ALL INTACT WITH GOOD BLOOD RETURN NEGATIVE SIGNS OF INFILTRATION/ INFECTION. BED LOCKED AND IN LOWEST POSITION, CALL LIGHT WITHIN REACH, SIDE RAILS UPX3, WILL CONT TO JAMEY.
[2017-09-06 20:00] VITALS: BP 131/95
[2017-09-07] VITALS: BP 152/76
[2017-09-07] MEDS: PIPERACILLIN /TAZOBACTAM 3.375 G in IV D5W 50 ML IV SCH ×4 (00:12→17:44)
[2017-09-07] MEDS: BLOOD SUGAR DIAGNOSTIC 1 EACH STRIP IN SCH ×4 (00:12→17:44)
[2017-09-07] MEDS: METOCLOPRAMIDE HCL 10 MG/2 ML VIAL IV SCH ×4 (02:22→21:11)
[2017-09-07 04:00] VITALS: BP 150/52
[2017-09-07] MEDS: HYDROMORPHONE INJ 2 MG/ML DISP.SYRIN IV PRN ×3 (06:22→21:12)
[2017-09-07 06:24] LABS: BASOPHILS % (AUTO) 0.1 % (0.0-2.0); EOSINOPHILS % (AUTO) 3.1 % (0.0-6.0); HEMATOCRIT 34 % (33-45); HEMOGLOBIN 11.4 g/dL (11.5-14.8); LYMPHOCYTES # (AUTO) 1.2 /CMM (0.8-4.8); LYMPHOCYTES % (AUTO) 8.3 % (20.0-44.0); MEAN CORPUSCULAR HGB CONC 34 g/dl (31.0-36.0); MEAN CORPUSCULAR VOLUME 86 fL (82-100); MONOCYTES # (AUTO) 0.8 /CMM (0.1-1.30); MONOCYTES % (AUTO) 5.9 % (2.0-12.0); NEUTROPHILS # (AUTO) 11.8 /CMM (1.8-8.9); NEUTROPHILS % (AUTO) 82.6 % (43.0-81.0); PLATELET COUNT (AUTO) 420 /CMM (150-450); RDW COEFFICIENT OF VARIATION 15.6 (11.5-15.0); RED BLOOD CELL COUNT(AUTO) 3.91 MIL/uL (4.0-5.2); WHITE BLOOD COUNT (AUTO) 14.3 K/uL (4.3-11.0)
[2017-09-07 07:13] LABS: CALCIUM, SERUM 8.5 mg/dL (8.5-10.1); CREATININE 0.7 mg/dL (0.6-1.3); POTASSIUM 3.7 mmol/L (3.5-5.1)
--- NOTE | 2017-09-07 07:30 | NUR ---
MS RN AM NOTES PT IN BED, AAOX4, GERMAN AND TURKISH SPEAKING. ON 4L NC SATING WELL NO SOB OR DISTRESS NOTED, RESPIRATION UNLABORED, DENIES PAIN AT THIS TIME, JENNYFER PICC LINE, RAC G20 IVHL, LEFT AC G 18 IVHL , ALL FLUSHES WELL, ALL SITES CLEAR. S/P EX LAP SIGMOID COLON RESECTION + END COLOSTOMY BY DR. ANTON ON 09/02/17. JESSICA DRAIN IN PLACE TO SUPRAPUBIC AREA AND LEFT LOWER ABDOMEN, MINIMAL SEROSANGUINOUS DRAINAGE, CDI DRESSING, CHRIS CATH IN PLACE TO BE REMOVED TODAY PER MD. COLOSTOMY BAG IN PLACE WITH SEMI FORMED STOOL, SEE NURSING FLOWSHEET FOR SKIN ISSUES, CPM AT BEDSIDE [REQUIRED 4 HOURS/DAY]. PT IS NPO FOR CT OF ABDOMEN WITH CONTRAST. BED LOCKED AND IN LOWEST POSITION, CALL LIGHT WITHIN REACH, SIDE RAILS UPX3, WILL CONT TO JAMEY.
--- NOTE | 2017-09-07 07:45 | NUR ---
RN NOTES PT STABLE CONDITION. VSS. SAFETY MEASURES IN PLACE. CALL LIGHT WITHIN REACH. WILL ENDORSE TO ONCOMING NURSE.
[2017-09-07 08:00] VITALS: BP 145/88
[2017-09-07] MEDS: PANTOPRAZOLE 40 MG TABLET.DR PO SCH (08:32)
--- NOTE | 2017-09-07 08:36 | NUR ---
LEFT MESSAGE WITH MD OFFICE TO CLARIFY CT ABDOMEN PELVIS ORDER.
[2017-09-07] MEDS: AMLODIPINE BESYLATE 5 MG TABLET PO SCH (09:08)
--- NOTE | 2017-09-07 09:08 | NUR ---
MS RN NOTES ADMINISTERED DUE MEDS. ADMINISTERED DILAUDID 0.5 MG IV, SCANNED BUT DID NOT SAVED.
[2017-09-07] MEDS: ENOXAPARIN SODIUM 40 MG/0.4 ML DISP.SYRIN SQ SCH (09:09)
--- NOTE | 2017-09-07 09:30 | NUR ---
MS RN NOTES DUE MEDS GIVEN
--- NOTE | 2017-09-07 09:38 | NUR ---
MS RN NOTES PATIENT ROUNDS. NO C/O PAIN
--- NOTE | 2017-09-07 10:19 | NUR ---
MS RN NOTES CHRIS OUT PER MD. 350 ML OUTPUT
--- NOTE | 2017-09-07 11:35 | NUR ---
MS RN NOTES ZOSYN IV STARTED
--- NOTE | 2017-09-07 11:44 | NUR ---
MS RN NOTES ACCUCHECK. BS 140 MG/DL. REFUSED INSULIN COVERAGE.
[2017-09-07] MEDS ORDERED: IV NS 0.9% 500 ML IV ONE (13:01)
[2017-09-07] MEDS ORDERED: IOHEXOL-300 100 ML VIAL IV ONE (13:01)
[2017-09-07] MEDS ORDERED: CT SWABBABLE VALVE TRANS SET 1 EA INFUS.SET MC ONE (13:01)
--- NOTE | 2017-09-07 13:15 | NUR ---
MS RN NOTES PT BACK FROM CT OF ABDOMEN.
[2017-09-07 16:00] VITALS: BP 153/85
--- NOTE | 2017-09-07 17:44 | NUR ---
MS RN NOTES ZOSYN IV STARTED
--- NOTE | 2017-09-07 17:56 | NUR ---
MS RN NOTES ACCUCHECK. BS 119 MG/DL. NO INSULIN COVERAGE.
--- NOTE | 2017-09-07 18:56 | NUR ---
MS RN CLOSING NOTES PT IN BED, RESTING, AAOX4, ANGOLAN AND LEBANESE SPEAKING. ON 4L NC SATING WELL NO SOB OR DISTRESS NOTED, RESPIRATION UNLABORED, DENIES PAIN AT THIS TIME, JENNYFER PICC LINE, LEFT AC G 18 IVHL , ALL FLUSHES WELL, ALL SITES CLEAR. S/P EX LAP SIGMOID COLON RESECTION + END COLOSTOMY BY DR. ANTON ON 09/02/17. JESSICA DRAIN IN PLACE TO SUPRAPUBIC AREA 10 ML OUTPUT AND LEFT LOWER ABDOMEN, MINIMAL SEROSANGUINOUS DRAINAGE, CDI DRESSING, COLOSTOMY BAG IN PLACE EMPTY, ON CPM RIGHT LEG, [REQUIRED 4 HOURS/DAY]. CLEAR LIQUID DIET. BED LOCKED AND IN LOWEST POSITION, CALL LIGHT WITHIN REACH, SIDE RAILS UPX3, PM CARE DONE. ALL NEEDS MET. NO OTHER SIGNIFICANT CHANGE IN CONDITION. WILL ENDORSE TO NEXT SHIFT FOR ESTIVEN.
--- NOTE | 2017-09-07 19:57 | NUR ---
RN NOTES PT RECEIVED IN BED. FAMILY AT BEDSIDE. A/O X 4. ON 4L O2 VIA NC SATING WELL. NEGATIVE SIGNS OF SOB OR DISTRESS. JENNYFER PICC LINE, 18G LAC BOTH FLUSHING WELL, GOOD BLOOD RETURN NEGATIVE SIGNS OF INFILTRATION, INFECTION, ALL SITES CLEAR. SUPRAPUBIC AND LEFT LOWER ABD JESSICA DRAIN IN PLACE AND INTACT WITH GOOD SUCTION. CDI DRESSING, COLOSTOMY BAG CLEAN AND INTACT. WILL CONTINUE TO MONITOR. BED LOCKED LOWEST POSITION. CALL LIGHT WITHIN REACH.
[2017-09-07 20:00] VITALS: BP 149/87
[2017-09-08] MEDS: PIPERACILLIN /TAZOBACTAM 3.375 G in IV D5W 50 ML IV SCH ×5 (00:11→23:16)
[2017-09-08] MEDS: METOCLOPRAMIDE HCL 10 MG/2 ML VIAL IV SCH ×2 (02:36→08:49)
[2017-09-08 04:00] VITALS: BP 149/87
[2017-09-08] MEDS: BLOOD SUGAR DIAGNOSTIC 1 EACH STRIP IN SCH ×3 (05:06→11:16)
[2017-09-08 06:43] LABS: CALCIUM, SERUM 8.5 mg/dL (8.5-10.1); CREATININE 0.7 mg/dL (0.6-1.3); POTASSIUM 3.5 mmol/L (3.5-5.1)
--- NOTE | 2017-09-08 07:16 | NUR ---
RN NOTES PT STABLE CONDITION. VSS. SAFETY MEASURES IN PLACE. CALL LIGHT WITHIN REACH. WILL ENDORSE TO ONCOMING NURSE.
[2017-09-08 07:25] LABS: BASOPHILS % (AUTO) 0.1 % (0.0-2.0); EOSINOPHILS % (AUTO) 3.5 % (0.0-6.0); HEMATOCRIT 33 % (33-45); HEMOGLOBIN 11.1 g/dL (11.5-14.8); LYMPHOCYTES # (AUTO) 1.3 /CMM (0.8-4.8); MEAN CORPUSCULAR HGB CONC 34 g/dl (31.0-36.0); MEAN CORPUSCULAR VOLUME 88 fL (82-100); MONOCYTES # (AUTO) 0.8 /CMM (0.1-1.30); MONOCYTES % (AUTO) 6.5 % (2.0-12.0); NEUTROPHILS # (AUTO) 9.1 /CMM (1.8-8.9); NEUTROPHILS % (AUTO) 78.9 % (43.0-81.0); PLATELET COUNT (AUTO) 478 /CMM (150-450); RDW COEFFICIENT OF VARIATION 15.9 (11.5-15.0); RED BLOOD CELL COUNT(AUTO) 3.78 MIL/uL (4.0-5.2); WHITE BLOOD COUNT (AUTO) 11.5 K/uL (4.3-11.0)
--- NOTE | 2017-09-08 07:30 | NUR ---
MS RN AM NOTES PT IN BED, AAOX4, KHMER AND ARABIC SPEAKING. ON 3L NC SATING WELL NO SOB OR DISTRESS NOTED, RESPIRATION UNLABORED, DENIES PAIN AT THIS TIME, JENNYFER PICC LINE, LEFT AC G 18 IVHL , ALL FLUSHES WELL, ALL SITES CLEAR. S/P EX LAP SIGMOID COLON RESECTION + END COLOSTOMY BY DR. ANTON ON 09/02/17. JESSCIA DRAIN IN PLACE TO SUPRAPUBIC AREA AND LEFT LOWER ABDOMEN, MINIMAL SEROSANGUINOUS DRAINAGE, CDI DRESSING, COLOSTOMY BAG IN PLACE WITH SEMI FORMED STOOL, SEE NURSING FLOWSHEET FOR SKIN ISSUES, CPM AT BEDSIDE [REQUIRED 4 HOURS/DAY]. REGULAR DIET, USES BSC, OOB WITH ASSIST. BED LOCKED AND IN LOWEST POSITION, CALL LIGHT WITHIN REACH, SIDE RAILS UPX3, WILL CONT TO JAMEY.
[2017-09-08 08:00] VITALS: BP 155/88
[2017-09-08 08:13] VITALS: BP 155/88
[2017-09-08] MEDS: PANTOPRAZOLE 40 MG TABLET.DR PO SCH (08:27)
[2017-09-08] MEDS: AMLODIPINE BESYLATE 5 MG TABLET PO SCH (08:48)
[2017-09-08] MEDS: ENOXAPARIN SODIUM 40 MG/0.4 ML DISP.SYRIN SQ SCH (08:55)
--- NOTE | 2017-09-08 09:30 | NUR ---
MS RN NOTES DUE MEDS GIVEN
[2017-09-08] MEDS ORDERED: INSULIN REGULAR, HUMAN 100 UNIT/ML 3 ML VIAL SQ PRN (11:00)
[2017-09-08] MEDS ORDERED: DEXTROSE 50%-WATER 50 ML DISP.SYRIN IV PRN (11:00)
[2017-09-08] MEDS ORDERED: *INSULIN REGULAR(HUMULIN R)HUM 100 UNIT/ML VIAL SQ PRN (11:00)
--- NOTE | 2017-09-08 11:39 | NUR ---
MS RN NOTES ZOSYN IV STARTED
[2017-09-08] MEDS ORDERED: BLOOD SUGAR DIAGNOSTIC 1 EACH STRIP VI SCH (12:00)
[2017-09-08] MEDS: HYDROMORPHONE INJ 2 MG/ML DISP.SYRIN IV PRN ×2 (12:18→19:37)
[2017-09-08] MEDS ORDERED: IPRATROPIUM NEB FS 0.5 MG/2.5 ML AMPUL.NEB NEB SCH (13:30)
[2017-09-08] MEDS ORDERED: ALBUTEROL FS 2.5 MG/0.5 ML VIAL.NEB NEB SCH (13:30)
[2017-09-08 16:00] VITALS: BP 149/92
--- NOTE | 2017-09-08 17:26 | NUR ---
MS RN NOTES ZOSYN IV STARTED
--- NOTE | 2017-09-08 18:29 | NUR ---
MS RN CLOSING NOTES PT IN BED, RESTING, AAOX4, SAO TOMEAN AND MALAGASY SPEAKING. ON 3L NC SATING WELL NO SOB OR DISTRESS NOTED, RESPIRATION UNLABORED, DENIES PAIN AT THIS TIME, JENNYFER PICC LINE, LEFT AC G 18 IVHL , ALL FLUSHES WELL, ALL SITES CLEAR. S/P EX LAP SIGMOID COLON RESECTION + END COLOSTOMY BY DR. ANTON ON 09/02/17. JESSICA DRAIN IN PLACE TO SUPRAPUBIC AREA 10 ML OUTPUT AND LEFT LOWER ABDOMEN, MINIMAL SEROSANGUINOUS DRAINAGE 10 ML, CDI DRESSING, COLOSTOMY BAG REPLACED, 65 ML OUTPUT, ON CPM RIGHT LEG, [REQUIRED 4 HOURS/DAY]. REGULAR DIET. LOW FIBER. BED LOCKED AND IN LOWEST POSITION, CALL LIGHT WITHIN REACH, SIDE RAILS UPX3, PM CARE DONE. ALL NEEDS MET. NO OTHER SIGNIFICANT CHANGE IN CONDITION. WILL ENDORSE TO NEXT SHIFT FOR ESTIVEN.
--- NOTE | 2017-09-08 19:25 | NUR ---
RN M/S NOTE RECEIVED PATIENT AOX3, SPEECH CLEAR, ABLE TO MAKE NEEDS KNOWN, JESSICA DRAIN X2 IN PLACE WITH SEROSANGUINEOUS FLUID, COLOSTOMY IN PLACE DRAINING BROWN LIQUID STOOL, PT IS AMBULATORY WITH ASSIST, OFFERED BEDPAN, SKIN IS DRY AND INTACT, R KNEE OSVALDO, CLEAN, NO DRAINAGE NOTED, JENNYFER PICC LINE PATENT FLUSHING WELL, LAC 18G PATENT FLUSHING WELL, SITES CDI. SAFETY MAINTAINED AT ALL TIMES, CALL LIGHT WITHIN REACH, BED IN LOW LOCKED POSITION, WILL CONTINUE TO MONITOR FOR ANY CHANGES IN CONDITION.
[2017-09-08 20:00] VITALS: BP 150/85
[2017-09-08 20:04] VITALS: BP 150/85
[2017-09-09 04:00] VITALS: BP 144/77
[2017-09-09] MEDS: PIPERACILLIN /TAZOBACTAM 3.375 G in IV D5W 50 ML IV SCH ×3 (05:25→18:32)
[2017-09-09] MEDS: HYDROMORPHONE INJ 2 MG/ML DISP.SYRIN IV PRN ×3 (05:43→18:57)
[2017-09-09 08:00] VITALS: BP 140/82
[2017-09-09] MEDS ORDERED: AMLODIPINE BESYLATE 5 MG TABLET PO SCH (09:00)
[2017-09-09] MEDS: PANTOPRAZOLE 40 MG TABLET.DR PO SCH (09:24)
[2017-09-09] MEDS: ENOXAPARIN SODIUM 40 MG/0.4 ML DISP.SYRIN SQ SCH (09:25)
[2017-09-09 13:00] VITALS: BP 131/72
[2017-09-09 16:00] VITALS: BP 140/82
--- NOTE | 2017-09-09 18:20 | NUR ---
MS/RN NOTE TWO JESSICA DRAINS ARE REMOVED BY DR ANTON. NO BLEEDING AND NO S/S INFECTION NOTED. THE PATIENT TOLERATED THE REMOVAL WELL.
--- NOTE | 2017-09-09 18:24 | NUR ---
MS/RN NOTE RECEIVED NEW ORDER FROM DR ANTON. THE ORDER READ BACK, VERIFIED. NOTED AND CARRIED OUT.
--- NOTE | 2017-09-09 19:09 | NUR ---
MS/RN CLOSING NOTE PATIENT ALERT AND ORIENTED X4. DENIES SOB. RESPIRATION REGULAR AND UNLABORED. DENIES PAIN. JENNYFER PICC LINE PATENT AND IV INFUSING WITH NO S/S INFILTRATION. BED LOW AND LOCKED. SIDE RAILS UP X2. CALL LIGHT WITHIN REACH. WILL ENDORSE TO DIRECTOR OF CURRICULUM.
[2017-09-09 20:00] VITALS: BP 143/90
--- NOTE | 2017-09-09 20:45 | NUR ---
WHEEL MILL OPERATOR NOTES PATIENT WAS DISCHARGED TO HOME. ALL DISCHARGED INSTRUCTIONS AND TEACHING WERE CARRIED OUT. PATIENT AND FAMILY VERBALIZED UNDERSTANDING OF ALL DISCHARGE INSTRUCTION. PRESCRIPTION WAS GIVEN TO PATIENT. PATIENT HAD NO BELONGINGS. UPPER RIGHT ARM PICC LINE WAS REMOVED. PATIENT WAS TRANSPORTED OFF FLOOR AT 2030 VIA WHEELCHAIR.
== END 2017-09-09 20:30 | disposition home health service (06) | DRG 853 ==
LOC: ER 20:47 → ICU 09-01 01:51 → TELE1 09-04 16:34 → MEDSG1 09-05 10:41
PROVIDERS: ADMIT Internal Medicine; ATTEND Internal Medicine
PROC: 0D1M0Z4 Bypass Descending Colon to Cutaneous, Open Approach (ICD-10-PCS; 2017-09-01)
PROC: 5A1945Z Respiratory Ventilation, 24-96 Consecutive Hours (ICD-10-PCS; 2017-09-01)
PROC: 0W9G0ZZ Drainage of Peritoneal Cavity, Open Approach (ICD-10-PCS; 2017-09-01)
PROC: 02HV33Z Insertion of Infusion Device into Superior Vena Cava, Percutaneous Approach (ICD-10-PCS; 2017-09-01)
PROC: B548ZZA Ultrasonography of Superior Vena Cava, Guidance (ICD-10-PCS; 2017-09-01)
PROC: 0DTN0ZZ Resection of Sigmoid Colon, Open Approach (ICD-10-PCS; principal; 2017-09-01 03:40)
DX: A41.9 Sepsis, unspecified organism (principal); K65.9 Peritonitis, unspecified; J96.91 Respiratory failure, unspecified with hypoxia; K65.1 Peritoneal abscess; K57.20 Diverticulitis of large intestine with perforation and abscess without bleeding; J98.11 Atelectasis; K80.10 Calculus of gallbladder with chronic cholecystitis without obstruction; E83.39 Other disorders of phosphorus metabolism; E87.6 Hypokalemia; F17.210 Nicotine dependence, cigarettes, uncomplicated; I10 Essential (primary) hypertension; Z79.899 Other long term (current) drug therapy; E66.9 Obesity, unspecified; Z68.31 Body mass index [BMI] 31.0-31.9, adult; R73.9 Hyperglycemia, unspecified; K80.20 Calculus of gallbladder without cholecystitis without obstruction; I95.9 Hypotension, unspecified; Z96.651 Presence of right artificial knee joint
CPT/HCPCS: 31720; 36415; 36600; 71045-TC; 76705-TC; 78226; 80048-TC; 80053-TC; 80061-TC; 80076-TC; 81000-TC; 82306; 82803-TC; 82962-TC; 83605-TC; 83690-TC; 83735-TC; 84100-TC; 84439-TC; 84443-TC; 84484-TC; 85025-TC; 85730-TC; 86850-TC; 87040-TC; 87081-TC; 87086-TC; 88305-TC; 88307-TC; 92521; 92526; 93307-TC; 94002-TC; 94003-TC; 94760-TC; 94799-TC; 97110-TC; 97116-TC; 97530-TC; 97760-TC; A4216; A4606; A6402; A9537; A9563; C1751; C9113; J1170; J1650; J1815; J2270; J2405; J2543; J2704; J2765; J3480; J3490; J7030; J7040; J7060; P9047; Q9967; Z7610